=== PATIENT | female | born 2000 | race Caucasian/White ===

== ENCOUNTER 2024-01-23 21:09 | Emergency (ER) | payer OTHER ==
[~2024-01-23] VITALS: Ht 160 cm; Wt 84.0 kg
[2024-01-23] MEDS ORDERED: MethylPREDNISolone SOD SUCC 125 MG/2 ML VIAL ONE (21:12)
[2024-01-23] MEDS ORDERED: FAMOTIDINE 20 MG/2 ML VIAL ONE (21:15)
[2024-01-23] MEDS ORDERED: DIPH50 PO (21:23)
[2024-01-23] MEDS: FAMOTIDINE 20 MG/2 ML VIAL IVP ONE (21:26)
[2024-01-23] MEDS: MethylPREDNISolone SOD SUCC 125 MG/2 ML VIAL IVP ONE (21:26)
[2024-01-23] MEDS: SODIUM CHLORIDE 0.9% 1,000 ML IV ONE (21:26)
[2024-01-23 21:35] LABS: BASOPHILS % (AUTO) 0.3 % (0.0-2.0); EOSINOPHILS % (AUTO) 0.5 % (1.0-6.0); HEMATOCRIT 36.9 % (36-46); HEMOGLOBIN 11.8 g/dL (12.0-16.0); LYMPHOCYTES # (AUTO) 7.8 K/uL (1.0-4.8); LYMPHOCYTES % (AUTO) 44.6 % (22.0-44.0); MEAN CORPUSCULAR HEMOGLOBIN 27.8 pg (26.0-34.0); MEAN CORPUSCULAR HGB CONC 31.9 G/dL (31.0-37.0); MEAN CORPUSCULAR VOLUME 87 fL (80-100); MONOCYTES % (AUTO) 5.8 % (2.0-9.0); NEUTROPHILS # (AUTO) 8.6 K/uL (1.8-7.7); NEUTROPHILS % (AUTO) 48.8 % (40.0-70.0); PLATELET COUNT (AUTO) 293 K/uL (150-450); RED BLOOD CELL COUNT(AUTO) 4.23 MIL/uL (4.00-5.20); WHITE BLOOD COUNT (AUTO) 17.6 K/uL (4.5-11.0)
[2024-01-23 21:54] LABS: ALANINE AMINOTRANSFERASE 15 U/L (12-78); ALBUMIN 3.5 g/dL (3.4-5.0); ALKALINE PHOSPHATASE 77 U/L (46-116); ANION GAP 12 mmol/L (8-16); ASPARTATE AMINOTRANSFERASE 13 U/L (15-37); BILIRUBIN,TOTAL 0.3 mg/dL (0.1-1.0); CALCIUM, TOTAL 8.2 mg/dL (8.8-10.5); CARBON DIOXIDE 23 mmol/L (22-29); CHLORIDE 104 mmol/L (98-107); CREATININE 0.87 mg/dL (0.60-1.30); GLOMERULAR FILTR. RATE CALC > 60 mL/min (>60); GLUCOSE,RANDOM 177 mg/dL (70-110); SODIUM SERUM 139 mmol/L (136-145); TOTAL PROTEIN, SERUM 7.2 g/dL (6.4-8.2); UREA NITROGEN, BLOOD 15 mg/dL (7-18)
[2024-01-23 21:56] LABS: HCG,QUANTITATIVE < 1 mIU/mL (0-6)
[2024-01-23] MEDS: POTASSIUM CHLORIDE 20 MEQ ER TABLET PO ONE (22:49)
[2024-01-23 23:04] VITALS: TEMP 98.6
[2024-01-23 23:12] VITALS: BP 115/89; PULSE 89; RESP 16
[2024-01-23] MEDS ORDERED: DIPH50CA37 PO (23:22)
[2024-01-23] MEDS ORDERED: LORA10TA7 PO (23:22)
[2024-01-23] MEDS ORDERED: EPIN0.3P3 IM (23:22)
[2024-01-23] MEDS ORDERED: PRED-554 PO (23:22)
== END 2024-01-24 00:10 | disposition home or self-care (01) ==
LOC: EMS 21:10
DX: T78.2XXA Anaphylactic shock, unspecified, initial encounter (principal); J45.909 Unspecified asthma, uncomplicated; Z98.890 Other specified postprocedural states
CPT/HCPCS: 99284; 96374; 96361; 96375; 80053; 84702; 85025; 36415; J3490; J2919; J7030